=== PATIENT | male | born 1930 | race Caucasian/White ===

== ENCOUNTER 2018-07-26 11:15 | Observation (INO) | payer MEDICARE, BC ==
[2018-07-26] MEDS ORDERED: Sodium Chloride 0.9% 10 ML Syringe FLUSH PRN (11:18)
[2018-07-26] MEDS ORDERED: Sodium Chloride 0.9% 2.5 ML Syringe FLUSH PRN (11:18)
--- NOTE | 2018-07-26 11:21 | EDM.PDOC ---
ED HPI GENERAL MEDICAL PROBLEM - General Chief Complaint: Respiratory Problem Stated Complaint: TROUBLE BREATHING Time Seen by Provider: 07/26/18 11:18 Source of Information: Reports: Patient History Limitations: Reports: No Limitations - History of Present Illness INITIAL COMMENTS - FREE TEXT/NARRATIVE: HISTORY AND PHYSICAL: History of present illness: Patient is an 88-year-old male who presents to the emergency room today with complaints of shortness of breath. Patient states the shortness of breath started last night. Patient states he has inhalers at home which she has been taking as prescribed. States he's also been having a cough for the past several weeks that has not gone away. The shortness of breath is worse when he lays back and better when he sits up. States he's never been diagnosed with any heart concerns. Patient states he is only able to walk across the room before feeling short of breath. Patient denies fever, chills, nausea, vomiting, chest pain, headache, syncope, abdominal pain, or all other GI, , cardiovascular, or respiratory concerns. He does have a history of hypertension, SHIKHA, COPD, and gout. Review of systems: As per history of present illness and below otherwise all systems reviewed and negative. Past medical history: As per history of present illness and as reviewed below otherwise noncontributory. Surgical history: As per history of present illness and as reviewed below otherwise noncontributory. Social history: See social history for further information Family history: As per history of present illness and as reviewed below otherwise noncontributory. Physical exam: Physical exam is limited due to body habitus. General: Patient is alert, oriented, and in no acute distress. He is lying comfortably on exam table. HEENT: Atraumatic, normocephalic, pupils equal and reactive bilaterally, negative for conjunctival pallor or scleral icterus, mucous membranes moist, TMs normal bilaterally, throat clear, neck supple, nontender, trachea midline. No drooling or trismus noted. No meningeal signs. No hot potato voice noted. Lungs: Lung sounds difficult to hear due to body habitus and heart murmur. Otherwise, clear to auscultation, breath sounds equal bilaterally, chest nontender. Heart: S1S2, regular rate and rhythm. There is a grade 3-4 systolic ejection murmur best heard at the apex. Abdomen: Patient does have apprehension about laying back. Obese, soft, nondistended, nontender. Negative for masses or hepatosplenomegaly. Negative for costovertebral tenderness. Pelvis: Stable nontender. Genitourinary: Deferred. Rectal: Deferred. Skin: Intact, warm, dry. No lesions or rashes noted. Extremities: Atraumatic, negative for cords or calf pain. Neurovascular unremarkable. 1+ non pitting edema. Neuro: Awake, alert, oriented. Cranial nerves II through XII unremarkable. Cerebellum unremarkable. Motor and sensory unremarkable throughout. Exam nonfocal. Notes: We'll do lab work and imaging. Solumedrol and Duo nebs ordered as sats 92-95% on RA Labs do show an elevated BUN and creatinine as well as elevated liver function tests. Chest x-ray shows no acute cardiopulmonary process. After discussion with patient, he states he does not feel comfortable enough going home as he lives by himself and has felt more weak. Discussed the patient with Dr. Javier for admission and will admit to observation. Supportive care measures were reviewed and discussed. Voices understanding and is agreeable to plan of care. Denies any further questions or concerns at this time. Diagnostics: CBC, CMP, EKG, chest x-ray, troponin, UA, BNP Therapeutics: Solumedrol, Duo Neb Impression: Dehydration COPD exacerbation Transaminitis Anemia, unspecified Plan: 1. Admit to observation Definitive disposition and diagnosis as appropriate pending reevaluation and review of above. - Related Data Allergies Allergy/AdvReac Type Severity Reaction Status Date / Time No Known Allergies Allergy Verified 07/26/18 11:17 Home Meds: Home Meds Albuterol/Ipratropium [Combivent Respimat] 1 puff INH ASDIRECTED 01/02/14 [ History] Aspirin 325 mg PO DAILY 01/02/14 [History] B2/Vit A,C & E/Lut/Zeaxanth/Mn [Icaps] 1 tab PO BID 01/02/14 [History] Fluticasone Propionate [Flovent] 2 sprays NASBOTH DAILY 01/02/14 [History] Furosemide [Lasix] 40 mg PO BID 01/02/14 [History] Lisinopril 40 mg PO DAILY 01/02/14 [History] Rosuvastatin [Crestor] 10 mg PO DAILY 01/02/14 [History] Verapamil HCl [Verapamil ER] 240 mg PO BEDTIME 01/02/14 [History] Past Medical History HEENT History: Reports: Cataract Cardiovascular History: Reports: Hypertension Respiratory History: Reports: Asthma Endocrine/Metabolic History: Reports: Obesity/BMI 30+ - Past Surgical History HEENT Surgical History: Reports: Eye Surgery, Naso-Sinus Surgery, Oral Surgery Social & Family History - Family History Family Medical History: Noncontributory ED ROS GENERAL - Review of Systems Review Of Systems: ROS reveals no pertinent complaints other than HPI. ED EXAM, GENERAL - Physical Exam Exam: See Below (see dictation) Course - Vital Signs Last Recorded V/S: Last Vital Signs Temp 97.4 F 07/26/18 11:18 Pulse 71 07/26/18 13:45 Resp 18 07/26/18 13:45 BP 124/67 07/26/18 13:45 Pulse Ox 95 07/26/18 13:45 - Orders/Labs/Meds Orders: Active Orders 24 hr Category Date Time Status Admission Status [Patient Status] [ADT] Stat ADT 07/26/18 14:23 Active EKG Documentation Completion [RC] STAT Care 07/26/18 11:17 Active RT Aerosol Therapy [RC] ASDIRECTED Care 07/26/18 12:33 Active B-TYPE NATRIURETIC PEPTIDE,BNP [CHEM] Stat Lab 07/26/18 11:25 Received UA RFX ROBERT AND CULT IF INDIC [URIN] Stat Lab 07/26/18 14:18 Ordered Sodium Chloride 0.9% [Saline Flush] Med 07/26/18 11:18 Active 10 ml FLUSH ASDIRECTED PRN Sodium Chloride 0.9% [Saline Flush] Med 07/26/18 11:18 Active 2.5 ml FLUSH ASDIRECTED PRN Saline Lock Insert [OM.PC] Stat Oth 07/26/18 11:18 Ordered Medication Orders Sodium Chloride (Saline Flush) 10 ml FLUSH ASDIRECTED PRN PRN Reason: Keep Vein Open Last Admin: 07/26/18 12:04 Dose: 10 ml Sodium Chloride (Saline Flush) 2.5 ml FLUSH ASDIRECTED PRN PRN Reason: Keep Vein Open Last Admin: 07/26/18 12:04 Dose: 2.5 ml Labs: Laboratory Tests 03/12/19 03/12/19 Range/Units 11:25 11:25 WBC 5.95 (4.0-11.0) K/uL RBC 3.77 L (4.50-5.90) M/uL Hgb 11.6 L (13.0-17.0) g/dL Hct 34.0 L (38.0-50.0) % MCV 90.2 (80.0-98.0) fL MCH 30.8 (27.0-32.0) pg MCHC 34.1 (31.0-37.0) g/dL RDW Std Deviation 51.7 (28.0-62.0) fl RDW Coeff of Shahid 16 H (11.0-15.0) % Plt Count 174 (150-400) K/uL MPV 10.80 (7.40-12.00) fL Neut % (Auto) 66.0 (48.0-80.0) % Lymph % (Auto) 25.7 (16.0-40.0) % [place] % (Auto) 8.1 (0.0-15.0) % Eos % (Auto) 0.0 (0.0-7.0) % Baso % (Auto) 0.2 (0.0-1.5) % Neut # (Auto) 3.9 (1.4-5.7) K/uL Lymph # (Auto) 1.5 (0.6-2.4) K/uL [place] # (Auto) 0.5 (0.0-0.8) K/uL Eos # (Auto) 0.0 (0.0-0.7) K/uL Baso # (Auto) 0.0 (0.0-0.1) K/uL Nucleated RBC % 0.0 /100WBC Nucleated RBCs # 0 K/uL Sodium 142 (136-148) mmol/L Potassium 4.7 (3.5-5.1) mmol/L Chloride 110 H (98-107) mmol/L Carbon Dioxide 22.1 (21.0-32.0) mmol/L BUN 53 H (7.0-18.0) mg/dL Creatinine 1.6 H (0.8-1.3) mg/dL Est Cr Clr Drug Dosing 31.47 mL/min Estimated GFR (MDRD) 41.1 ml/min Glucose 151 H (74-106) mg/dL Calcium 9.1 (8.5-10.1) mg/dL Total Bilirubin 0.5 (0.2-1.0) mg/dL AST 94 H (15-37) IU/L ALT 122 H (14-63) IU/L Alkaline Phosphatase 293 H (46-116) U/L Troponin I < 0.050 (0.000-0.056) ng/mL Total Protein 6.1 L (6.4-8.2) g/dL Albumin 2.8 L (3.4-5.0) g/dL Globulin 3.3 (2.6-4.0) g/dL Albumin/Globulin Ratio 0.9 (0.9-1.6) Meds: Medications Generic Name Dose Route Start Last Admin Trade Name Freq PRN Reason Stop Dose Admin Sodium Chloride 10 ml 07/26/18 11:18 07/26/18 12:04 Saline Flush FLUSH 10 ml ASDIRECTED PRN Administration Keep Vein Open Sodium Chloride 2.5 ml 07/26/18 11:18 07/26/18 12:04 Saline Flush FLUSH 2.5 ml ASDIRECTED PRN Administration Keep Vein Open Discontinued Medications Generic Name Dose Route Start Last Admin Trade Name Freq PRN Reason Stop Dose Admin Albuterol/Ipratropium 3 ml 07/26/18 12:33 07/26/18 12:50 Duoneb 3.0-0.5 Mg/3 Ml NEB 07/26/18 12:34 3 ml ONETIME ONE Administration Sodium Chloride 1,000 mls @ 999 mls/hr 07/26/18 12:32 Normal Saline IV 07/26/18 13:32 STAT ONE Methylprednisolone Sodium Succinate 125 mg 07/26/18 12:33 07/26/18 12:41 Solu-Medrol IVPUSH 07/26/18 12:34 125 mg ONETIME ONE Administration Departure - Departure Time of Disposition: 14:31 Disposition: Refer to Observation Clinical Impression: COPD exacerbation, Dehydration, Transaminitis Anemia Qualifiers: Anemia type: unspecified type Qualified Code(s): D64.9 - Anemia, unspecified - Discharge Information Referrals: PCP,Unknown [Primary Care Provider] - Forms: ED Department Discharge - My Orders Last 24 Hours: My Active Orders 07/26/18 11:17 EKG Documentation Completion [RC] STAT 07/26/18 11:18 Sodium Chloride 0.9% [Saline Flush] 10 ml FLUSH ASDIRECTED PRN Sodium Chloride 0.9% [Saline Flush] 2.5 ml FLUSH ASDIRECTED PRN Saline Lock Insert [OM.PC] Stat 07/26/18 11:25 B-TYPE NATRIURETIC PEPTIDE,BNP [CHEM] Stat 07/26/18 12:33 RT Aerosol Therapy [RC] ASDIRECTED 07/26/18 14:18 UA RFX ROBERT AND CULT IF INDIC [URIN] Stat 07/26/18 14:23 Admission Status [Patient Status] [ADT] Stat - Assessment/Plan Last 24 Hours: My Active Orders 07/26/18 11:17 EKG Documentation Completion [RC] STAT 07/26/18 11:18 Sodium Chloride 0.9% [Saline Flush] 10 ml FLUSH ASDIRECTED PRN Sodium Chloride 0.9% [Saline Flush] 2.5 ml FLUSH ASDIRECTED PRN Saline Lock Insert [OM.PC] Stat 07/26/18 11:25 B-TYPE NATRIURETIC PEPTIDE,BNP [CHEM] Stat 07/26/18 12:33 RT Aerosol Therapy [RC] ASDIRECTED 07/26/18 14:18 UA RFX ROBERT AND CULT IF INDIC [URIN] Stat 07/26/18 14:23 Admission Status [Patient Status] [ADT] Stat
[2018-07-26 12:01] LABS: CHLORIDE,CL 110 mmol/L (98-107); SODIUM,NA 142 mmol/L (136-148)
[2018-07-26] MEDS ORDERED: Sodium Chloride 0.9% 1,000 ML IV ONE (12:32)
[2018-07-26] MEDS ORDERED: Albuterol/Ipratropium 3.0-0.5 MG/3 ML Neb Soln NEB ONE (12:33)
[2018-07-26] MEDS ORDERED: methylPREDNISolone Sodium Succinate 125 MG/2 ML SDV IVPUSH ONE (12:33)
--- NOTE | 2018-07-26 14:11 | CR ---
EXAMINATION: Portable chest radiograph. HISTORY: Shortness of breath. FINDINGS: The trachea is midline. The cardiomediastinal silhouette is within normal limits. No pulmonary infiltrates, effusions or pneumothorax. Osseous structures appear unremarkable. IMPRESSION: No acute cardiopulmonary process.
[2018-07-26] MEDS ORDERED: Albuterol/Ipratropium 3.0-0.5 MG/3 ML Neb Soln NEB PRN (14:58)
[2018-07-26] MEDS ORDERED: Acetaminophen 325 MG Tab PO PRN (14:58)
[2018-07-26] MEDS ORDERED: Ondansetron 4 MG/2 ML SDV IVPUSH PRN (14:58)
[2018-07-26] MEDS ORDERED: Heparin Sodium 5,000 Units/ML Vial SUBCUT SCH ×2 (15:00→17:00)
[2018-07-26] MEDS ORDERED: Sodium Chloride 0.9% 500 ML IV ONE (15:03)
--- NOTE | 2018-07-26 15:09 | PCM.HP ---
H&P History of Present Illness - General Date of Service: 07/26/18 Admit Problem/Dx: Admission Diagnosis/Problem Admission Diagnosis/Problem Dehydration Source of Information: Patient History Limitations: Reports: No Limitations - History of Present Illness Initial Comments - Free Text/Narative: This 88 year old male with pmh of HTN, COPD, chronic knee pain from osteoarthritis and borderline DM type 2 (diet controlled) presented to the ED today with complaints of shortness of breath and generalized weakness. He reports he has had a cough and cold for several week and just wasn't feeling well. 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 He denies fevers, headache or neck pain. No chest pain or palpitations. No abdominal pain, nausea, vomiting or diarrhea. No black or bloody BMs. No neurologic complaints. He reports he has been eating and drinking well. He does not feel safe to return home by himself, he lives alone. He ambulates in the home normally with a cane. He denies tobacco use, occasional alcohol use, a couple a day here and there per his report. In the ED no leukocytosis noted, BUN 53 Cr 1.6. AST 94, ALT 122, Alk phos 293. BNP 266. BP slightly hypotensive upon arrival, increased to 120s SBP. CXR negative. He was give Solumedrol and Duonebs in the ED. He reports he is feeling better with breathing, but doesn't feel safe to go home due to his generalized weakness. PCP, Dr Melendez. - Related Data Allergies/Adverse Reactions: Allergies Allergy/AdvReac Type Severity Reaction Status Date / Time No Known Allergies Allergy Verified 07/26/18 11:17 Home Medications: Home Meds Albuterol/Ipratropium [Combivent Respimat] 1 puff INH ASDIRECTED 01/02/14 [ History] Aspirin 325 mg PO DAILY 01/02/14 [History] B2/Vit A,C & E/Lut/Zeaxanth/Mn [Icaps] 1 tab PO BID 01/02/14 [History] Fluticasone Propionate [Flovent] 2 sprays NASBOTH DAILY 01/02/14 [History] Furosemide [Lasix] 40 mg PO BID 01/02/14 [History] Lisinopril 40 mg PO DAILY 01/02/14 [History] Rosuvastatin [Crestor] 10 mg PO DAILY 01/02/14 [History] Verapamil HCl [Verapamil ER] 240 mg PO BEDTIME 01/02/14 [History] Past Medical History HEENT History: Reports: Cataract Cardiovascular History: Reports: High Cholesterol, Hypertension. Denies: Afib, Blood Clots/VTE/DVT, CAD, Heart Failure, ND Respiratory History: Reports: Asthma, COPD, Sleep Apnea (CPAP at home) Gastrointestinal History: Reports: Colon Polyp. Denies: GERD Genitourinary History: Reports: None, Chronic Renal Insuffiency Musculoskeletal History: Reports: Osteoarthritis (chronic knee pain, typically gets steroid injections with Dr Melendez) Neurological History: Reports: None. Denies: CVA, TIA Psychiatric History: Reports: None Endocrine/Metabolic History: Reports: Diabetes, Type II (borderline DM, diet controlled), Obesity/BMI 30+ - Infectious Disease History Infectious Disease History: Reports: Chicken Pox - Past Surgical History HEENT Surgical History: Reports: Eye Surgery, Naso-Sinus Surgery, Oral Surgery GI Surgical History: Reports: Colonoscopy Social & Family History - Family History Family Medical History: Noncontributory - Tobacco Use Smoking Status *Q: Never Smoker - Caffeine Use Caffeine Use: Reports: Coffee - Alcohol Use Alcohol Use History: No Alcohol Use Frequency: Rarely - Living Situation & Occupation Living situation: Reports: Alone Occupation: Retired H&P Review of Systems - Review of Systems: Review Of Systems: See Below General: Reports: Weakness (generlized). Denies: Fever, Chills HEENT: Reports: Sinus Congestion. Denies: Ear Pain, Headaches, Post Nasal Drip , Sore Throat, Visual Changes Pulmonary: Reports: Shortness of Breath, Wheezing, Cough. Denies: Sputum, Hemoptysis Cardiovascular: Reports: Orthopnea, Edema (lower legs). Denies: Chest Pain, Palpitations, Lightheadedness Gastrointestinal: Reports: No Symptoms. Denies: Abdominal Pain, Black Stool, Bloody Stool, Nausea, Vomiting Genitourinary: Reports: No Symptoms. Denies: Dysuria, Frequency, Burning Musculoskeletal: Reports: No Symptoms Skin: Reports: No Symptoms Psychiatric: Reports: No Symptoms Neurological: Reports: No Symptoms Hematologic/Lymphatic: Reports: No Symptoms Immunologic: Reports: No Symptoms Exam - Exam Exam: See Below - Vital Signs Vital Signs: Last Vital Signs Temp 97.4 F 07/26/18 11:18 Pulse 71 07/26/18 14:47 Resp 20 07/26/18 14:47 BP 124/47 L 07/26/18 14:47 Pulse Ox 95 07/26/18 14:47 Weight: 122.47 kg - Exam Quality Assessment: DVT Prophylaxis. No: Supplemental Oxygen General: Alert, Oriented, Cooperative HEENT: Conjunctiva Clear, Mucosa Moist & [place], Posterior Pharynx Clear Lungs: Clear to Auscultation, Normal Respiratory Effort Cardiovascular: Regular Rate, Regular Rhythm, Systolic Murmur (grade 3-4 holosystolic murmur, patient reports he never had this before. ) GI/Abdominal Exam: Normal Bowel Sounds, Soft, Non-Tender, No Distention, Other ( obese abdomen) Back Exam: Normal Inspection, Full Range of Motion Extremities: Normal Inspection, Normal Range of Motion, Non-Tender, Pedal Edema (+1 pitting edema) Skin: Warm, Dry Neuro Extensive - Mental Status: Alert, Oriented x3, Normal Mood/Affect Neuro Extensive - Motor, Sensory, Reflexes: CN II-XII Intact Psychiatric: Alert, Normal Affect, Normal Mood - Patient Data Lab Results Last 24 hrs: Laboratory Results - last 24 hr 07/26/18 07/26/18 07/26/18 Range/Units 11:25 11:25 11:25 WBC 5.95 (4.0-11.0) K/uL RBC 3.77 L (4.50-5.90) M/uL Hgb 11.6 L (13.0-17.0) g/dL Hct 34.0 L (38.0-50.0) % MCV 90.2 (80.0-98.0) fL MCH 30.8 (27.0-32.0) pg MCHC 34.1 (31.0-37.0) g/dL RDW Std Deviation 51.7 (28.0-62.0) fl RDW Coeff of Shahid 16 H (11.0-15.0) % Plt Count 174 (150-400) K/uL MPV 10.80 (7.40-12.00) fL Neut % (Auto) 66.0 (48.0-80.0) % Lymph % (Auto) 25.7 (16.0-40.0) % [place] % (Auto) 8.1 (0.0-15.0) % Eos % (Auto) 0.0 (0.0-7.0) % Baso % (Auto) 0.2 (0.0-1.5) % Neut # (Auto) 3.9 (1.4-5.7) K/uL Lymph # (Auto) 1.5 (0.6-2.4) K/uL [place] # (Auto) 0.5 (0.0-0.8) K/uL Eos # (Auto) 0.0 (0.0-0.7) K/uL Baso # (Auto) 0.0 (0.0-0.1) K/uL Nucleated RBC % 0.0 /100WBC Nucleated RBCs # 0 K/uL Sodium 142 (136-148) mmol/L Potassium 4.7 (3.5-5.1) mmol/L Chloride 110 H (98-107) mmol/L Carbon Dioxide 22.1 (21.0-32.0) mmol/L BUN 53 H (7.0-18.0) mg/dL Creatinine 1.6 H (0.8-1.3) mg/dL Est Cr Clr Drug Dosing 31.47 mL/min Estimated GFR (MDRD) 41.1 ml/min Glucose 151 H (74-106) mg/dL Calcium 9.1 (8.5-10.1) mg/dL Total Bilirubin 0.5 (0.2-1.0) mg/dL AST 94 H (15-37) IU/L ALT 122 H (14-63) IU/L Alkaline Phosphatase 293 H (46-116) U/L Troponin I < 0.050 (0.000-0.056) ng/mL B-Natriuretic Peptide 266 H (<100) PG/ML Total Protein 6.1 L (6.4-8.2) g/dL Albumin 2.8 L (3.4-5.0) g/dL Globulin 3.3 (2.6-4.0) g/dL Albumin/Globulin Ratio 0.9 (0.9-1.6) Result Diagrams: 07/26/18 11:25 07/26/18 11:25 EKG INTERPRETATION EKG Date: 07/26/18 Rhythm: NSR Rate (Beats/Min): 70 P-Wave: Present QRS: Normal ST-T: Normal QT: Normal *Q Meaningful Use (ADM) - VTE Risk Assess *Q Each Risk Factor Represents 1 Point: Obesity ( BMI > 25 kg/m2), Abnormal Pulmonary Function (COPD) Total Score 1 Point Risk Factors: 2 Each Risk Factor Represents 2 Points: None Total Score 2 Point Risk Factors: 0 Each Risk Factor Represents 3 Points: Age 75 Years or Greater Total Score 3 Point Risk Factors: 3 Each Risk Factor Represents 5 Points: None Total Score 5 Point Risk Factors: 0 Venous Thromboembolism Risk Factor Score *Q: 5 - Problem List (1) COPD exacerbation SNOMED Code(s): 704182470 ICD Code: J44.1 - CHRONIC OBSTRUCTIVE PULMONARY DISEASE W (ACUTE) EXACERBATION Status: Acute Current Visit: Yes (2) Generalized weakness SNOMED Code(s): 14484209 ICD Code: R53.1 - WEAKNESS Status: Acute Current Visit: Yes (3) Newly recognized murmur SNOMED Code(s): 05303575 ICD Code: R01.1 - CARDIAC MURMUR, UNSPECIFIED Status: Acute Current Visit : Yes (4) Transaminitis SNOMED Code(s): 673770757, 293600199 ICD Code: R74.0 - NONSPEC ELEV OF LEVELS OF TRANSAMNS & LACTIC ACID DEHYDRGNSE Status: Acute Current Visit: Yes (5) BLACK (acute kidney injury) SNOMED Code(s): 62062353 ICD Code: N17.9 - ACUTE KIDNEY FAILURE, UNSPECIFIED Status: Acute Current Visit: Yes (6) Dehydration SNOMED Code(s): 64461383 ICD Code: E86.0 - DEHYDRATION Status: Acute Current Visit: Yes (7) HTN (hypertension) SNOMED Code(s): 89444801 ICD Code: I10 - ESSENTIAL (PRIMARY) HYPERTENSION Status: Chronic Current Visit: Yes Qualifiers: Hypertension type: essential hypertension Qualified Code(s): I10 - Essential (primary) hypertension (8) Borderline type 2 diabetes mellitus SNOMED Code(s): 389971911 ICD Code: R73.03 - PREDIABETES Status: Chronic Current Visit: Yes Problem List Initiated/Reviewed/Updated: Yes Orders Last 24hrs: Active Orders 24 hr Category Date Time Status Admission Status [Patient Status] [ADT] Stat ADT 07/26/18 14:23 Active Height and Weight [RC] DAILY Care 07/26/18 14:58 Ordered Intake and Output [RC] QSHIFT Care 07/26/18 14:58 Ordered May Shower [RC] ASDIRECTED Care 07/26/18 14:58 Ordered Oxygen Therapy [RC] PRN Care 07/26/18 14:58 Ordered RT Aerosol Therapy [RC] ASDIRECTED Care 07/26/18 12:33 Active RT Aerosol Therapy [RC] ASDIRECTED Care 07/26/18 15:00 Ordered Up With Assistance [RC] ASDIRECTED Care 07/26/18 14:58 Ordered VTE/DVT Education [RC] PER UNIT ROUTINE Care 07/26/18 14:58 Ordered Vital Signs [RC] Q4H Care 07/26/18 14:58 Ordered PT Evaluation and Treatment [CONS] Routine Cons 07/26/18 14:58 Ordered [place] [employer] Diet [DIET] Diet 07/26/18 Lunch Ordered Abdomen Ltd [US] Routine Exams 07/26/18 15:01 Ordered Echo Comp wo Cont [US] Routine Exams 07/26/18 15:02 Ordered CBC WITH AUTO DIFF [HEME] AM Lab 07/27/18 05:11 Ordered COMPREHENSIVE METABOLIC PN,CMP [CHEM] AM Lab 07/27/18 05:11 Ordered HEPATITIS PANEL (4) [REF] Routine Lab 07/26/18 15:01 Ordered UA RFX ROBERT AND CULT IF INDIC [URIN] Stat Lab 07/26/18 14:18 Ordered Acetaminophen [Tylenol] Med 07/26/18 14:58 Ordered 650 mg PO Q4H PRN Albuterol/Ipratropium [DuoNeb 3.0-0.5 MG/3 ML] Med 07/26/18 14:58 Ordered 3 ml NEB Q4HRRT PRN Heparin Sodium Med 07/26/18 15:00 Ordered 5,000 units SUBCUT Q12H Ondansetron [Zofran] Med 07/26/18 14:58 Ordered 4 mg IVPUSH Q4H PRN Sodium Chloride 0.9% [Normal Saline] 500 ml Med 07/26/18 15:03 Ordered IV ONETIME Sodium Chloride 0.9% [Saline Flush] Med 07/26/18 11:18 Active 10 ml FLUSH ASDIRECTED PRN Sodium Chloride 0.9% [Saline Flush] Med 07/26/18 11:18 Active 2.5 ml FLUSH ASDIRECTED PRN Saline Lock Insert [OM.PC] Stat Oth 07/26/18 11:18 Ordered Resuscitation Status Routine Resus Stat 07/26/18 14:58 Ordered Medication Orders Acetaminophen (Tylenol) 650 mg PO Q4H PRN PRN Reason: Pain (mild 1-3) Albuterol/Ipratropium (Duoneb 3.0-0.5 Mg/3 Ml) 3 ml NEB Q4HRRT PRN PRN Reason: Shortness Of Breath/wheezing Heparin Sodium (Porcine) (Heparin Sodium) 5,000 units SUBCUT Q12H ZAIDA Sodium Chloride (Normal Saline) 500 mls @ 100 mls/hr IV ONETIME ONE Stop: 07/26/18 20:02 Ondansetron HCl (Zofran) 4 mg IVPUSH Q4H PRN PRN Reason: Nausea Sodium Chloride (Saline Flush) 10 ml FLUSH ASDIRECTED PRN PRN Reason: Keep Vein Open Last Admin: 07/26/18 12:04 Dose: 10 ml Sodium Chloride (Saline Flush) 2.5 ml FLUSH ASDIRECTED PRN PRN Reason: Keep Vein Open Last Admin: 07/26/18 12:04 Dose: 2.5 ml Assessment/Plan Comment:: This 88 year old male admitted with mild COPD exacerbation and generalized weaknes 1. COPD exacerbation: Will continue inhalers as per home. Add Duonebs and Prednisone 40 mg daily. Oxygen PRN to keep sats 88% Encourage IS. 2. Generalized weakness: May be related to acute URI. Will consult PT to evaluate and treat. 3. New murmur: reports never had murmur before. No documentation of murmur is PCPs notes upon review. Will obtain ECHO. 4. Mild dehydration with BLACK: Will give 500 ml NS and monitor labs in am. Hold Lasix and Lisinopril with BLACK. BUN/Cr elevated from baseline of 28/1.1 5. Transaminitis: Will obtain hepatitis panel. and Abdominal US. Denies pain. Will Hold Crestor for now. 6. HTN: Stable. Will continue Verapamil. Monitor 7. DM Type 2: Reports borderline and doesn't take medications. A1c 5.6 in 2017. Novolog SSI while in the hospital VTE prophylaxis: Heparin Q12h Dispo: 1-2 days.
[2018-07-26] MEDS ORDERED: Albuterol/Ipratropium 4 GM Inhalation Spray INH PRN (16:38)
[2018-07-26] MEDS: Heparin Sodium 5,000 Units/ML Vial SUBCUT SCH (17:11)
[2018-07-26] MEDS: Insulin Aspart 100 Units/ML 3 ML Pen SUBCUT SCH (17:18)
[2018-07-26] MEDS ORDERED: Verapamil 240 MG Tab.ER PO SCH (21:00)
[2018-07-26] MEDS: ICAPS PO SCH (21:48)
[2018-07-27] MEDS: Insulin Aspart 100 Units/ML 3 ML Pen SUBCUT SCH ×2 (06:44→13:46)
[2018-07-27] MEDS ORDERED: predniSONE 20 MG Tab PO SCH (08:00)
[2018-07-27] MEDS ORDERED: Aspirin 81 MG Tab.Chew PO SCH (09:00)
[2018-07-27] MEDS ORDERED: Fluticasone Propionate Nasal Spray 16 GM Bottle NASBOTH SCH (09:00)
[2018-07-27] MEDS: Heparin Sodium 5,000 Units/ML Vial SUBCUT SCH (09:45)
[2018-07-27] MEDS: ICAPS PO SCH (10:12)
--- NOTE | 2018-07-27 11:54 | PCM.DCSUM1 ---
Discharge Summary - Hospital Course Brief History: This 88 year old male with pmh of HTN, COPD, chronic knee pain from osteoarthritis and borderline DM type 2 (diet controlled) presented to the ED today with complaints of shortness of breath and generalized weakness. He reports he has had a cough and cold for several week and just wasn't feeling well. 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 He denies fevers, headache or neck pain. No chest pain or palpitations. No abdominal pain, nausea, vomiting or diarrhea. No black or bloody BMs. No neurologic complaints. He reports he has been eating and drinking well. He does not feel safe to return home by himself, he lives alone. He ambulates in the home normally with a cane. He denies tobacco use, occasional alcohol use, a couple a day here and there per his report. In the ED no leukocytosis noted, BUN 53 Cr 1.6. AST 94, ALT 122, Alk phos 293. BNP 266. BP slightly hypotensive upon arrival, increased to 120s SBP. CXR negative. He was give Solumedrol and Duonebs in the ED. He reports he is feeling better with breathing, but doesn't feel safe to go home due to his generalized weakness. PCP, Dr Melendez. Diagnosis: Stroke: No - Discharge Data Discharge Date: 07/27/18 Discharge Disposition: Home, W Home Health Agency 06 Condition: Good - Discharge Diagnosis/Problem(s) (1) COPD exacerbation SNOMED Code(s): 065973862 ICD Code: J44.1 - CHRONIC OBSTRUCTIVE PULMONARY DISEASE W (ACUTE) EXACERBATION Status: Acute Current Visit: Yes (2) Generalized weakness SNOMED Code(s): 38218585 ICD Code: R53.1 - WEAKNESS Status: Acute Current Visit: Yes (3) Newly recognized murmur SNOMED Code(s): 81151375 ICD Code: R01.1 - CARDIAC MURMUR, UNSPECIFIED Status: Acute Current Visit : Yes (4) Transaminitis SNOMED Code(s): 032761470, 378433121 ICD Code: R74.0 - NONSPEC ELEV OF LEVELS OF TRANSAMNS & LACTIC ACID DEHYDRGNSE Status: Acute Current Visit: Yes (5) BLACK (acute kidney injury) SNOMED Code(s): 15488397 ICD Code: N17.9 - ACUTE KIDNEY FAILURE, UNSPECIFIED Status: Acute Current Visit: Yes (6) Dehydration SNOMED Code(s): 12527071 ICD Code: E86.0 - DEHYDRATION Status: Acute Current Visit: Yes (7) HTN (hypertension) SNOMED Code(s): 23388470 ICD Code: I10 - ESSENTIAL (PRIMARY) HYPERTENSION Status: Chronic Current Visit: Yes Qualifiers: Hypertension type: essential hypertension Qualified Code(s): I10 - Essential (primary) hypertension (8) Borderline type 2 diabetes mellitus SNOMED Code(s): 105219654 ICD Code: R73.03 - PREDIABETES Status: Chronic Current Visit: Yes - Patient Summary/Data Consults: Consultations 07/26/18 14:58 PT Evaluation and Treatment [CONS] Routine - Patient Instructions Diet: Heart Healthy Diet, Diabetic Diet Activity: As Tolerated Showering/Bathing: May Shower Notify Provider of: Fever, Increased Pain, Swelling and Redness, Drainage, Nausea and/or Vomiting - Discharge Plan *PRESCRIPTION DRUG MONITORING PROGRAM REVIEWED*: Not Applicable *COPY OF PRESCRIPTION DRUG MONITORING REPORT IN PATIENT TED: Not Applicable Prescriptions/Med Rec: predniSONE 40 mg PO WITHBREAKFAST #6 tablet Home Medications: Home Meds Albuterol/Ipratropium [Combivent Respimat] 1 puff INH DAILY PRN 01/02/14 [ History] Aspirin 81 mg PO DAILY 01/02/14 [History] B2/Vit A,C & E/Lut/Zeaxanth/Mn [Icaps] 1 tab PO BID 01/02/14 [History] Fluticasone Propionate [Flovent] 2 sprays NASBOTH DAILY 01/02/14 [History] Furosemide [Lasix] 80 mg PO BID 01/02/14 [History] Lisinopril 40 mg PO DAILY 01/02/14 [History] Verapamil HCl [Verapamil ER] 240 mg PO BEDTIME 01/02/14 [History] Allopurinol [Zyloprim] 200 mg PO DAILY 07/26/18 [History] Fluticasone/Salmeterol [Advair HFA 230-21 MCG] 2 puff INH BID 07/26/18 [History] predniSONE 40 mg PO WITHBREAKFAST #6 tablet 07/27/18 [Rx] Oxygen Therapy Mode: Room Air Patient Handouts: Chronic Obstructive Pulmonary Disease, [id number], Prednisone tablets Referrals: Morgan Melendez MD [Physician] - 08/11/18 12:15 pm - Discharge Summary/Plan Comment DC Time >30 min.: No Discharge Summary/Plan Comment: Discharge Diagnoses: COPD exacerbation Transaminitis New murmur Generalized weakness PATT Rosas was admitted and treated for COPD exacerbation, which was very mild, with Duonebs and Prednisone. He reported generalized weakness with ambulation, PT was consulted and report he was steady ambulating with cane. Today he is feeling better and is eager to go home. Liver US and ECOH are pending to transaminitis and new murmur. He denies chest pain. shortness of breath has improved. I will discharge him on Prednisone for 4 more days and then to continue his inhalers as prescribed. He is to follow up with PCP as scheduled in 1-2 weeks. He is will go home Home Health consult. He is in need of skill nursing to insure he is taking medications as prescribed and would benefit from some PT due to recent admission and illness. He is home bound needing family to bring him to doctor appointments or to go to the store. He uses a cane for ambulation within and outside of the home. Dr Melendez is Ralph's PCP and he will follow with Home Health plan of care. - General Info Date of Service: 07/27/18 Admission Dx/Problem (Free Text: Admission Diagnosis/Problem Admission Diagnosis/Problem Dehydration Subjective Update: Sitting in recliner, feeling better today. reports his asthma is acting up. NO chest pain. Dyspnea better, eager to go home this afternoon. Functional Status: Reports: Tolerating Diet, Ambulating, Urinating - Review of Systems General: Reports: No Symptoms. Denies: Fever, Weakness, Fatigue, Malaise HEENT: Reports: No Symptoms. Denies: Headaches, Sore Throat Pulmonary: Reports: No Symptoms. Denies: Shortness of Breath, Cough, Sputum Cardiovascular: Reports: No Symptoms. Denies: Chest Pain, Palpitations, Dyspnea on Exertion, Edema Gastrointestinal: Reports: No Symptoms. Denies: Abdominal Pain, Nausea, Vomiting Skin: Reports: No Symptoms Neurological: Reports: No Symptoms Psychiatric: Reports: No Symptoms - Patient Data Vitals - Most Recent: Last Vital Signs Temp 96.7 F 07/27/18 08:21 Pulse 62 07/27/18 08:21 Resp 20 07/27/18 08:21 BP 139/53 L 07/27/18 08:21 Pulse Ox 95 07/27/18 04:00 Weight - Most Recent: 119.612 kg I&O - Last 24 hours: Intake & Output 07/26/18 07/27/18 07/27/18 22:59 06:59 14:59 Intake Total 500 Output Total 200 400 Balance 300 -400 Lab Results - Last 24 hrs: Laboratory Results - last 24 hr 07/26/18 07/26/18 07/26/18 Range/Units 11:25 11:25 17:14 WBC (4.0-11.0) K/uL RBC (4.50-5.90) M/uL Hgb (13.0-17.0) g/dL Hct (38.0-50.0) % MCV (80.0-98.0) fL MCH (27.0-32.0) pg MCHC (31.0-37.0) g/dL RDW Std Deviation (28.0-62.0) fl RDW Coeff of Shahid (11.0-15.0) % Plt Count (150-400) K/uL MPV (7.40-12.00) fL Neut % (Auto) (48.0-80.0) % Lymph % (Auto) (16.0-40.0) % [place] % (Auto) (0.0-15.0) % Eos % (Auto) (0.0-7.0) % Baso % (Auto) (0.0-1.5) % Neut # (Auto) (1.4-5.7) K/uL Lymph # (Auto) (0.6-2.4) K/uL [place] # (Auto) (0.0-0.8) K/uL Eos # (Auto) (0.0-0.7) K/uL Baso # (Auto) (0.0-0.1) K/uL Nucleated RBC % /100WBC Nucleated RBCs # K/uL Sodium 142 (136-148) mmol/L Potassium 4.7 (3.5-5.1) mmol/L Chloride 110 H (98-107) mmol/L Carbon Dioxide 22.1 (21.0-32.0) mmol/L BUN 53 H (7.0-18.0) mg/dL Creatinine 1.6 H (0.8-1.3) mg/dL Est Cr Clr Drug Dosing 31.47 mL/min Estimated GFR (MDRD) 41.1 ml/min Glucose 151 H (74-106) mg/dL POC Glucose 180 H (60-110) mg/dL Calcium 9.1 (8.5-10.1) mg/dL Total Bilirubin 0.5 (0.2-1.0) mg/dL AST 94 H (15-37) IU/L ALT 122 H (14-63) IU/L Alkaline Phosphatase 293 H (46-116) U/L Troponin I < 0.050 (0.000-0.056) ng/mL B-Natriuretic Peptide 266 H (<100) PG/ML Total Protein 6.1 L (6.4-8.2) g/dL Albumin 2.8 L (3.4-5.0) g/dL Globulin 3.3 (2.6-4.0) g/dL Albumin/Globulin Ratio 0.9 (0.9-1.6) Urine Color Urine Appearance Urine pH (5.0-8.0) Ur Specific [place] (1.001-1.035) Urine Protein (NEGATIVE) mg/dL Urine Glucose (UA) (NEGATIVE) mg/dL Urine Ketones (NEGATIVE) mg/dL Urine Occult Blood (NEGATIVE) Urine Nitrite (NEGATIVE) Urine Bilirubin (NEGATIVE) Urine Urobilinogen (<2.0) EU/dL Ur Leukocyte Esterase (NEGATIVE) Urine RBC (0-2/HPF) Urine WBC (0-5/HPF) Ur Epithelial Cells (NONE-FEW) Urine Bacteria (NEGATIVE) Urine Mucus (NONE-MOD) 07/26/18 07/27/18 07/27/18 Range/Units 18:50 05:05 05:05 WBC 5.14 (4.0-11.0) K/uL RBC 3.91 L (4.50-5.90) M/uL Hgb 11.9 L (13.0-17.0) g/dL Hct 35.4 L (38.0-50.0) % MCV 90.5 (80.0-98.0) fL MCH 30.4 (27.0-32.0) pg MCHC 33.6 (31.0-37.0) g/dL RDW Std Deviation 52.7 (28.0-62.0) fl RDW Coeff of Shahid 16 H (11.0-15.0) % Plt Count 189 (150-400) K/uL MPV 10.60 (7.40-12.00) fL Neut % (Auto) 77.0 (48.0-80.0) % Lymph % (Auto) 19.3 (16.0-40.0) % [place] % (Auto) 3.7 (0.0-15.0) % Eos % (Auto) 0.0 (0.0-7.0) % Baso % (Auto) 0.0 (0.0-1.5) % Neut # (Auto) 4.0 (1.4-5.7) K/uL Lymph # (Auto) 1.0 (0.6-2.4) K/uL [place] # (Auto) 0.2 (0.0-0.8) K/uL Eos # (Auto) 0.0 (0.0-0.7) K/uL Baso # (Auto) 0.0 (0.0-0.1) K/uL Nucleated RBC % 0.0 /100WBC Nucleated RBCs # 0 K/uL Sodium 142 (136-148) mmol/L Potassium 4.9 (3.5-5.1) mmol/L Chloride 109 H (98-107) mmol/L Carbon Dioxide 20.5 L (21.0-32.0) mmol/L BUN 48 H (7.0-18.0) mg/dL Creatinine 1.5 H (0.8-1.3) mg/dL Est Cr Clr Drug Dosing 33.57 mL/min Estimated GFR (MDRD) 44.3 ml/min Glucose 167 H (74-106) mg/dL POC Glucose (60-110) mg/dL Calcium 8.9 (8.5-10.1) mg/dL Total Bilirubin 0.5 (0.2-1.0) mg/dL AST 57 H (15-37) IU/L ALT 108 H (14-63) IU/L Alkaline Phosphatase 273 H (46-116) U/L Troponin I (0.000-0.056) ng/mL B-Natriuretic Peptide (<100) PG/ML Total Protein 6.6 (6.4-8.2) g/dL Albumin 3.1 L (3.4-5.0) g/dL Globulin 3.5 (2.6-4.0) g/dL Albumin/Globulin Ratio 0.9 (0.9-1.6) Urine Color YELLOW Urine Appearance CLEAR Urine pH 5.0 (5.0-8.0) Ur Specific [place] 1.010 (1.001-1.035) Urine Protein NEGATIVE (NEGATIVE) mg/dL Urine Glucose (UA) NEGATIVE (NEGATIVE) mg/dL Urine Ketones NEGATIVE (NEGATIVE) mg/dL Urine Occult Blood TRACE-INTACT H (NEGATIVE) Urine Nitrite NEGATIVE (NEGATIVE) Urine Bilirubin NEGATIVE (NEGATIVE) Urine Urobilinogen 0.2 (<2.0) EU/dL Ur Leukocyte Esterase NEGATIVE (NEGATIVE) Urine RBC 0-1 (0-2/HPF) Urine WBC 1-3 (0-5/HPF) Ur Epithelial Cells RARE (NONE-FEW) Urine Bacteria FEW (NEGATIVE) Urine Mucus FEW (NONE-MOD) 07/27/18 Range/Units 06:35 WBC (4.0-11.0) K/uL RBC (4.50-5.90) M/uL Hgb (13.0-17.0) g/dL Hct (38.0-50.0) % MCV (80.0-98.0) fL MCH (27.0-32.0) pg MCHC (31.0-37.0) g/dL RDW Std Deviation (28.0-62.0) fl RDW Coeff of Shahid (11.0-15.0) % Plt Count (150-400) K/uL MPV (7.40-12.00) fL Neut % (Auto) (48.0-80.0) % Lymph % (Auto) (16.0-40.0) % [place] % (Auto) (0.0-15.0) % Eos % (Auto) (0.0-7.0) % Baso % (Auto) (0.0-1.5) % Neut # (Auto) (1.4-5.7) K/uL Lymph # (Auto) (0.6-2.4) K/uL [place] # (Auto) (0.0-0.8) K/uL Eos # (Auto) (0.0-0.7) K/uL Baso # (Auto) (0.0-0.1) K/uL Nucleated RBC % /100WBC Nucleated RBCs # K/uL Sodium (136-148) mmol/L Potassium (3.5-5.1) mmol/L Chloride (98-107) mmol/L Carbon Dioxide (21.0-32.0) mmol/L BUN (7.0-18.0) mg/dL Creatinine (0.8-1.3) mg/dL Est Cr Clr Drug Dosing mL/min Estimated GFR (MDRD) ml/min Glucose (74-106) mg/dL POC Glucose 144 H (60-110) mg/dL Calcium (8.5-10.1) mg/dL Total Bilirubin (0.2-1.0) mg/dL AST (15-37) IU/L ALT (14-63) IU/L Alkaline Phosphatase (46-116) U/L Troponin I (0.000-0.056) ng/mL B-Natriuretic Peptide (<100) PG/ML Total Protein (6.4-8.2) g/dL Albumin (3.4-5.0) g/dL Globulin (2.6-4.0) g/dL Albumin/Globulin Ratio (0.9-1.6) Urine Color Urine Appearance Urine pH (5.0-8.0) Ur Specific [place] (1.001-1.035) Urine Protein (NEGATIVE) mg/dL Urine Glucose (UA) (NEGATIVE) mg/dL Urine Ketones (NEGATIVE) mg/dL Urine Occult Blood (NEGATIVE) Urine Nitrite (NEGATIVE) Urine Bilirubin (NEGATIVE) Urine Urobilinogen (<2.0) EU/dL Ur Leukocyte Esterase (NEGATIVE) Urine RBC (0-2/HPF) Urine WBC (0-5/HPF) Ur Epithelial Cells (NONE-FEW) Urine Bacteria (NEGATIVE) Urine Mucus (NONE-MOD) Med Orders - Current: Current Medications Acetaminophen (Tylenol) 650 mg PO Q4H PRN PRN Reason: Pain (mild 1-3) Albuterol/Ipratropium (Combivent Respimat) 4 gm INH DAILY PRN PRN Reason: Shortness of Breath Last Admin: 07/27/18 09:22 Dose: 1 puff Albuterol/Ipratropium (Duoneb 3.0-0.5 Mg/3 Ml) 3 ml NEB Q4HRRT [facility] Aspirin (Aspirin) 81 mg PO DAILY [facility] Last Admin: 07/27/18 09:43 Dose: 81 mg Fluticasone Propionate (Flonase) 0 gm NASBOTH DAILY [facility] Last Admin: 07/27/18 09:48 Dose: 1 spray Heparin Sodium (Porcine) (Heparin Sodium) 5,000 units SUBCUT Q12HR [facility] Last Admin: 07/27/18 09:45 Dose: 5,000 units Insulin Aspart (Novolog) 0 unit SUBCUT TIDAC [facility]; Protocol Last Admin: 07/27/18 06:44 Dose: Not Given Ondansetron HCl (Zofran) 4 mg IVPUSH Q4H PRN PRN Reason: Nausea [Icaps] 1 Tab 1 each PO BID [facility] Last Admin: 07/27/18 10:12 Dose: 1 each Prednisone (Prednisone) 40 mg PO WITHBREAKFAST [facility] Last Admin: 07/27/18 09:43 Dose: 40 mg Sodium Chloride (Saline Flush) 10 ml FLUSH ASDIRECTED PRN PRN Reason: Keep Vein Open Last Admin: 07/26/18 12:04 Dose: 10 ml Sodium Chloride (Saline Flush) 2.5 ml FLUSH ASDIRECTED PRN PRN Reason: Keep Vein Open Last Admin: 07/26/18 12:04 Dose: 2.5 ml Verapamil HCl (Calan Sr) 240 mg PO BEDTIME [facility] Last Admin: 07/26/18 21:48 Dose: 240 mg Discontinued Medications Albuterol/Ipratropium (Duoneb 3.0-0.5 Mg/3 Ml) 3 ml NEB ONETIME ONE Stop: 07/26/18 12:34 Last Admin: 07/26/18 12:50 Dose: 3 ml Albuterol/Ipratropium (Duoneb 3.0-0.5 Mg/3 Ml) 3 ml NEB Q4HRRT PRN PRN Reason: Shortness Of Breath/wheezing Heparin Sodium (Porcine) (Heparin Sodium) 5,000 units SUBCUT Q12H [facility] Last Admin: 07/26/18 17:29 Dose: Not Given Heparin Sodium (Porcine) (Heparin Sodium) 5,000 units SUBCUT Q12H [facility] Sodium Chloride (Normal Saline) 1,000 mls @ 999 mls/hr IV STAT ONE Stop: 07/26/18 13:32 Last Admin: 07/26/18 15:10 Dose: Not Given Sodium Chloride (Normal Saline) 500 mls @ 100 mls/hr IV ONETIME ONE Stop: 07/26/18 20:02 Last Admin: 07/26/18 16:26 Dose: 100 mls/hr Methylprednisolone Sodium Succinate (Solu-Medrol) 125 mg IVPUSH ONETIME ONE Stop: 07/26/18 12:34 Last Admin: 07/26/18 12:41 Dose: 125 mg - Exam General: Reports: Alert, Oriented, Cooperative, No Acute Distress Neck: Reports: Supple Lungs: Reports: Clear to Auscultation, Normal Respiratory Effort Cardiovascular: Reports: Regular Rate, Regular Rhythm, Murmurs (grade 3-4 holosystolic) GI/Abdominal Exam: Normal Bowel Sounds, Soft, Non-Tender, No Organomegaly Back Exam: Reports: Normal Inspection, Full Range of Motion Neurological: Reports: No New Focal Deficit Psy/Mental Status: Reports: Alert, Normal Affect, Normal Mood
[2018-07-27] MEDS ORDERED: Albuterol/Ipratropium 3.0-0.5 MG/3 ML Neb Soln NEB SCH (14:00)
[2018-07-27 14:07] VITALS: BP 131/60
--- NOTE | 2018-07-27 15:13 | US ---
EXAMINATION: Right upper quadrant ultrasound HISTORY: Transaminitis COMPARISON: None TECHNIQUE: Grayscale and color Doppler imaging obtained. FINDINGS: The visualized pancreas appears normal. The liver is normal in contour and echotexture without a focal hepatic mass. The gallbladder wall thickness is normal. No pericholecystic fluid or shadowing gallstones. Common bile duct measures 5 mm. Negative sonographic Riojas sign. IMPRESSION: 1. No acute findings noted within the right upper quadrant.
--- NOTE | 2018-07-29 17:34 | ECHO ---
The echocardiogram report can be seen in this patient's EMR (Electronic Medical Record) in the Reports section. The echocardiogram report has been scanned into PACS and can be seen there as well. ARACELI
== END 2018-07-27 16:00 | disposition home health service (06) ==
LOC: MW.ED 11:15 → MW.MS 14:23
PROVIDERS: ADMIT Internal Medicine; ATTEND Internal Medicine
DX: J44.1 Chronic obstructive pulmonary disease with (acute) exacerbation (principal); E86.0 Dehydration; N17.9 Acute kidney failure, unspecified; R01.1 Cardiac murmur, unspecified; R74.0 Nonspecific elevation of levels of transaminase and lactic acid dehydrogenase [LDH]; I12.9 Hypertensive chronic kidney disease with stage 1 through stage 4 chronic kidney disease, or unspecified chronic kidney disease; N18.9 Chronic kidney disease, unspecified; E78.00 Pure hypercholesterolemia, unspecified; J44.9 Chronic obstructive pulmonary disease, unspecified; R73.03 Prediabetes; G47.30 Sleep apnea, unspecified; M17.12 Unilateral primary osteoarthritis, left knee; Z99.89 Dependence on other enabling machines and devices; Z79.82 Long term (current) use of aspirin; Z79.51 Long term (current) use of inhaled steroids; Z79.52 Long term (current) use of systemic steroids; Z79.899 Other long term (current) drug therapy
CPT/HCPCS: 36415; 71045; 76705; 80053; 80074; 81001; 82962; 83880; 84484; 85025; 93005; 93306; 94640; 94664; 97161; A9270; J1644; J2930; J7040; 99284; J7620-GY

== ENCOUNTER 2019-03-09 15:50 | Observation (INO) | payer MEDICARE, BC ==
[2019-03-09] MEDS ORDERED: Sodium Chloride 0.9% 10 ML Syringe FLUSH PRN (16:06)
[2019-03-09] MEDS ORDERED: Sodium Chloride 0.9% 2.5 ML Syringe FLUSH PRN (16:06)
--- NOTE | 2019-03-09 16:06 | EDM.PDOC ---
ED HPI GENERAL MEDICAL PROBLEM - General Chief Complaint: Skin Complaint Stated Complaint: BLISTER ON NECK Time Seen by Provider: 03/09/19 16:03 Source of Information: Reports: Patient History Limitations: Reports: No Limitations - History of Present Illness INITIAL COMMENTS - FREE TEXT/NARRATIVE: HISTORY AND PHYSICAL: History of present illness: Patient is an 88-year-old male who presents to the emergency room from the clinic with complaints of an abscess/boil to his right posterior neck. He reports he initially presented to the clinic to have this abscess drained. The clinic attempted to perform an I&D but was unsuccessful. They encouraged him to come to the emergency room for further evaluation and management. Patient reports he noticed some soft tissue swelling and redness of approximately 3-4 days ago. States the area has progressively gotten larger and has noticed multiple pustules near the center. He has had subjective fevers at home, none reported. Patient denies any chills, headache, change in vision, syncope or near syncope. Denies any chest pain, back pain, shortness of breath or cough. Denies any abdominal pain, nausea, vomiting, diarrhea, constipation or dysuria. Has not noted any blood in urine or stool. Patient has been eating and drinking appropriately. Review of systems: As per history of present illness and below otherwise all systems reviewed and negative. Past medical history: As per history of present illness and as reviewed below otherwise noncontributory. Surgical history: As per history of present illness and as reviewed below otherwise noncontributory. Social history: See social history for further information Family history: As per history of present illness and as reviewed below otherwise noncontributory. Physical exam: General: Well developed and well nourished 88-year-old male. Alert and oriented. Nontoxic appearing and in no acute distress. HEENT: Atraumatic, normocephalic, pupils equal and reactive bilaterally, negative for conjunctival pallor or scleral icterus, mucous membranes moist, trachea midline. No drooling or trismus noted. No meningeal signs. No hot potato voice noted. Lungs: Clear to auscultation, breath sounds equal bilaterally, chest nontender. Heart: S1S2, regular rate and rhythm without overt murmur Abdomen: Soft, nondistended, obese, nontender. Negative for masses. Negative for costovertebral tenderness. Pelvis: Stable nontender. Skin: Baseball size mass noted to the right posterior neck which is firm to palpation. Surrounding erythema and multiple small pinpoint pustules are noted in the center of the mass. The remaining skin is intact, warm, dry. No lesions or rashes noted. Extremities: Atraumatic, moves all extremities per self without difficulty or deficits, negative for cords or calf pain. Neurovascular unremarkable. Neuro: Awake, alert, oriented. Cranial nerves II through XII unremarkable. Cerebellum unremarkable. Motor and sensory unremarkable throughout. Exam nonfocal. Notes: The mass does not appear to affect his airway. Due to the size of this, I will do a CT with contrast. Blood cultures have been obtained. CT pending. Dr Curry is here, evaluating patient, will admit for possible surgery tomorrow. Diagnostics: CBC, CMP, Lactic, BC x 2, CT soft tissue neck Therapeutics: Saline Lock Impression: Neck Mass r/o Abscess Plan: Observation admission to Med/Surg Definitive disposition and diagnosis as appropriate pending reevaluation and review of above. Duration: Day(s): Location: Reports: Neck Neck Pain Score (Numeric/FACES): 8 - Related Data Allergies Allergy/AdvReac Type Severity Reaction Status Date / Time No Known Allergies Allergy Verified 03/09/19 16:00 Home Meds: Home Meds Albuterol/Ipratropium [Combivent Respimat] 1 puff INH DAILY PRN 01/02/14 [ History] Aspirin 81 mg PO DAILY 01/02/14 [History] B2/Vit A,C & E/Lut/Zeaxanth/Mn [Icaps] 1 tab PO BID 01/02/14 [History] Fluticasone Propionate [Flovent] 2 sprays NASBOTH DAILY 01/02/14 [History] Furosemide [Lasix] 80 mg PO BID 01/02/14 [History] Lisinopril 40 mg PO DAILY 01/02/14 [History] Verapamil HCl [Verapamil ER] 240 mg PO BEDTIME 01/02/14 [History] Allopurinol [Zyloprim] 200 mg PO DAILY 07/26/18 [History] Fluticasone/Salmeterol [Advair HFA 230-21 MCG] 2 puff INH BID 07/26/18 [History] predniSONE 40 mg PO WITHBREAKFAST #6 tablet 07/27/18 [Rx] Past Medical History HEENT History: Reports: Cataract Cardiovascular History: Reports: High Cholesterol, Hypertension Respiratory History: Reports: Asthma, COPD, Sleep Apnea Gastrointestinal History: Reports: Colon Polyp Genitourinary History: Reports: None, Chronic Renal Insuffiency Musculoskeletal History: Reports: Osteoarthritis Neurological History: Reports: None Psychiatric History: Reports: None Endocrine/Metabolic History: Reports: Diabetes, Type II, Obesity/BMI 30+ - Infectious Disease History Infectious Disease History: Reports: Chicken Pox, Mumps - Past Surgical History HEENT Surgical History: Reports: Eye Surgery, Naso-Sinus Surgery, Oral Surgery GI Surgical History: Reports: Colonoscopy Social & Family History - Family History Family Medical History: Noncontributory - Caffeine Use Caffeine Use: Reports: Coffee, Soda - Living Situation & Occupation Living situation: Reports: Alone Occupation: Retired ED ROS GENERAL - Review of Systems Review Of Systems: ROS reveals no pertinent complaints other than HPI. ED EXAM, SKIN/RASH Exam: See Below (See dictation) Course - Vital Signs Last Recorded V/S: Last Vital Signs Temp 98.5 F 03/09/19 15:57 Pulse 98 03/09/19 15:57 Resp 18 03/09/19 15:57 BP 154/64 H 03/09/19 15:57 Pulse Ox 98 03/09/19 15:57 - Orders/Labs/Meds Orders: Active Orders 24 hr Category Date Time Status Admission Status [Patient Status] [ADT] Stat ADT 03/09/19 18:44 Active Soft Tissue Neck w Cont [CT] Stat Exams 03/09/19 16:10 Ordered CULTURE BLOOD [BC] Stat Lab 03/09/19 16:35 Results CULTURE BLOOD [BC] Stat Lab 03/09/19 16:51 Received Sodium Chloride 0.9% [Saline Flush] Med 03/09/19 16:06 Active 10 ml FLUSH ASDIRECTED PRN Sodium Chloride 0.9% [Saline Flush] Med 03/09/19 16:06 Active 2.5 ml FLUSH ASDIRECTED PRN Blood Culture x2 Reflex Set [OM.PC] Stat Oth 03/09/19 16:06 Ordered Saline Lock Insert [OM.PC] Stat Oth 03/09/19 16:06 Ordered Medication Orders Sodium Chloride (Saline Flush) 10 ml FLUSH ASDIRECTED PRN PRN Reason: Keep Vein Open Sodium Chloride (Saline Flush) 2.5 ml FLUSH ASDIRECTED PRN PRN Reason: Keep Vein Open Labs: Laboratory Tests 03/09/19 03/09/19 03/09/19 Range/Units 16:08 16:51 16:51 WBC 13.86 H (4.0-11.0) K/uL RBC 3.67 L (4.50-5.90) M/uL Hgb 11.6 L (13.0-17.0) g/dL Hct 36.1 L (38.0-50.0) % MCV 98.4 H (80.0-98.0) fL MCH 31.6 (27.0-32.0) pg MCHC 32.1 (31.0-37.0) g/dL RDW Std Deviation 52.0 (28.0-62.0) fl RDW Coeff of Shahid 15 (11.0-15.0) % Plt Count 222 (150-400) K/uL MPV 9.40 (7.40-12.00) fL Neut % (Auto) 82.4 H (48.0-80.0) % Lymph % (Auto) 8.2 L (16.0-40.0) % [place] % (Auto) 9.2 (0.0-15.0) % Eos % (Auto) 0.0 (0.0-7.0) % Baso % (Auto) 0.2 (0.0-1.5) % Neut # (Auto) 11.4 H (1.4-5.7) K/uL Lymph # (Auto) 1.1 (0.6-2.4) K/uL [place] # (Auto) 1.3 H (0.0-0.8) K/uL Eos # (Auto) 0.0 (0.0-0.7) K/uL Baso # (Auto) 0.0 (0.0-0.1) K/uL Nucleated RBC % 0.0 /100WBC Nucleated RBCs # 0 K/uL Lactate 1.2 (0.20-2.00) mmol/L Sodium 140 (136-148) mmol/L Potassium 4.0 (3.5-5.1) mmol/L Chloride 105 (98-107) mmol/L Carbon Dioxide 22.4 (21.0-32.0) mmol/L BUN 38 H (7.0-18.0) mg/dL Creatinine 1.4 H (0.8-1.3) mg/dL Est Cr Clr Drug Dosing 35.96 mL/min Estimated GFR (MDRD) 47.9 ml/min Glucose 121 H (74-106) mg/dL Calcium 8.9 (8.5-10.1) mg/dL Total Bilirubin 0.5 (0.2-1.0) mg/dL AST 22 (15-37) IU/L ALT 25 (14-63) IU/L Alkaline Phosphatase 86 (46-116) U/L Total Protein 7.4 (6.4-8.2) g/dL Albumin 3.4 (3.4-5.0) g/dL Globulin 4.0 (2.6-4.0) g/dL Albumin/Globulin Ratio 0.9 (0.9-1.6) Meds: Medications Generic Name Dose Route Start Last Admin Trade Name Freq PRN Reason Stop Dose Admin Sodium Chloride 10 ml 03/09/19 16:06 Saline Flush FLUSH ASDIRECTED PRN Keep Vein Open Sodium Chloride 2.5 ml 03/09/19 16:06 Saline Flush FLUSH ASDIRECTED PRN Keep Vein Open Discontinued Medications Generic Name Dose Route Start Last Admin Trade Name Freq PRN Reason Stop Dose Admin Vancomycin HCl 1 gm/ Sodium 250 mls @ 166 mls/hr 03/09/19 17:18 03/09/19 18: 48 Chloride IV 03/09/19 18:48 166 mls/hr ONETIME ONE Administration Sodium Chloride 1,000 mls @ 999 mls/hr 03/09/19 17:48 03/09/19 18:48 Normal Saline IV 03/09/19 18:48 125 mls/hr STAT ONE Administration Departure - Departure Time of Disposition: 18:51 Disposition: Refer to Observation Clinical Impression: Mass of neck - Discharge Information Referrals: Morgan Melendez MD [Primary Care Provider] - Forms: ED Department Discharge - My Orders Last 24 Hours: My Active Orders 03/09/19 16:06 Sodium Chloride 0.9% [Saline Flush] 10 ml FLUSH ASDIRECTED PRN Sodium Chloride 0.9% [Saline Flush] 2.5 ml FLUSH ASDIRECTED PRN Blood Culture x2 Reflex Set [OM.PC] Stat Saline Lock Insert [OM.PC] Stat 03/09/19 16:10 Soft Tissue Neck w Cont [CT] Stat 03/09/19 16:35 CULTURE BLOOD [BC] Stat 03/09/19 16:51 CULTURE BLOOD [BC] Stat 03/09/19 18:44 Admission Status [Patient Status] [ADT] Stat - Assessment/Plan Last 24 Hours: My Active Orders 03/09/19 16:06 Sodium Chloride 0.9% [Saline Flush] 10 ml FLUSH ASDIRECTED PRN Sodium Chloride 0.9% [Saline Flush] 2.5 ml FLUSH ASDIRECTED PRN Blood Culture x2 Reflex Set [OM.PC] Stat Saline Lock Insert [OM.PC] Stat 03/09/19 16:10 Soft Tissue Neck w Cont [CT] Stat 03/09/19 16:35 CULTURE BLOOD [BC] Stat 03/09/19 16:51 CULTURE BLOOD [BC] Stat 03/09/19 18:44 Admission Status [Patient Status] [ADT] Stat
[2019-03-09 17:41] LABS: CARBON DIOXIDE,CO2 22.4 mmol/L (21.0-32.0)
[2019-03-09] MEDS ORDERED: Sodium Chloride 0.9% 1,000 ML IV ONE (17:48)
--- NOTE | 2019-03-09 19:01 | PCM.SN ---
- Free Text/Narrative Note: pt seen, chart reviewed; h/p dictated; likely subq abscess; will admit for observation/iv abx; then OR ID in the morning; postop pt would need home health care nursing staff for drsg change every other day, about 3 wks - a month; [id number]
[2019-03-09] MEDS ORDERED: Acetaminophen/oxyCODONE 325-5 MG Tab PO PRN (19:10)
[2019-03-09] MEDS ORDERED: Lactated Ringers 1,000 ML IV SCH (19:15)
[2019-03-09] MEDS ORDERED: Iopamidol 755 MG/ML 500 ML Multipack Bottle IVPUSH STA (20:51)
--- NOTE | 2019-03-09 21:07 | CT ---
INDICATION: Mass, abscess, cellulitis. TECHNIQUE: CT images were obtained through the neck following administration of intravenous contrast. COMPARISON: None. FINDINGS: Large area of fat stranding involving the subcutaneous and deep tissues of the lower right posterior cervical neck associated with overlying skin thickening. Inflammatory changes involve the right trapezius muscle and are inseparable from the right cervical paraspinal musculature. No peripheral enhancing fluid collection to suggest abscess. The nasopharynx, oropharynx, hypopharynx, and larynx are widely patent and without enhancing lesions. No enhancing lesions in the oral cavity or floor of mouth. The parotid and submandibular glands are symmetric in size and without focal lesions or calcifications. No pathologically enlarged lymph nodes. Thyroid gland is normal size and demonstrates homogeneous enhancement. Advanced atherosclerotic calcifications of the carotid bifurcations. Postsurgical changes of prior endoscopic sinus surgery. Extensive mucoperiosteal wall thickening involving the visualized maxillary sinuses, compatible with sequelae of chronic sinusitis. The mastoid air cells are clear. Multilevel cervical spondylosis. The visualized lungs are without concerning opacities. IMPRESSION: 1. Large area of inflammatory stranding involving the subcutaneous and deep tissues of the lower right posterior cervical neck associated with overlying skin thickening. Differential considerations favor sequelae of cellulitis. No enhancing fluid collection of suggest abscess. Clinical correlation and follow-up recommended. 2. No pathologically enlarged lymph nodes. Please note that all CT scans at this facility use dose modulation, iterative reconstruction, and/or weight-based dosing when appropriate to reduce radiation dose to as low as reasonably achievable. Dictated by Matthew Washington MD @ Mar 10 2019 1:14PM Signed by Dr. Matthew Washington @ Mar 10 2019 1:27PM
--- NOTE | 2019-03-10 01:22 | CONS ---
DATE OF CONSULTATION: 03/09/2019 DATE OF : 1930 PRIMARY CARE PHYSICIAN: Morgan Melendez MD REASON FOR CONSULTATION: This is a consult from Dr. Mera, emergency room for neck infection. HISTORY OF PRESENT ILLNESS: The patient is an 88-year-old, obese, gentleman seen in the emergency room for about 1-week history of gradual onset of neck infection. The patient remarked that it was a small bite about a week ago and slowly grew to big one. Denies shortness of breath. Denied chest pain. Denied fever, chills, nausea, vomiting. Denied dysphagia and denied prior episode, and denied drainage. The patient said it does hurt only when he turns his neck completely. Denies any signs or symptoms of airway compromise. PAST MEDICAL HISTORY: Significant for no diabetes, AK, CVA, hypertension. The patient has a history of asthma and sinus problem. SURGICAL HISTORY: None. No abdominal surgery. FAMILY HISTORY: Noncontributory. ALLERGIES: Please refer to nursing for details. MEDICATIONS: Please refer to nursing for details. PHYSICAL EXAMINATION: GENERAL: A very pleasant, morbidly obese gentleman, sitting in wheelchair, in no acute distress, and patient still managed to smile to the doctor. HEENT: Normocephalic and atraumatic. Very poor dentition. The patient has only one single tooth on upper jaw. At neck base on the posterior aspect on the right side, there is a large mass spreading 8 cm, tender to the touch, and with punctate pustulate around the skin. Skin is intact. HEART: Regular rate and rhythm. ABDOMEN: Soft, nondistended. No pulsating tender midline abdominal structure. LUNG: Coarse breath sounds. IMPRESSION: Neck mass, likely severe neck infection. We will proceed with CT imaging to assess the extent of the infection and admit for observation, IV antibiotic, and taken to operating room for incision and drainage and exploration after 12 hours of antibiotic infusion. Plan has been discussed with the patient and the ER provider and all agree. As always, thank you for the kind referral. MARIANNA CASTELLANO /[id number] ARACELI
--- NOTE | 2019-03-10 07:51 | PCM.PREANE ---
Preanesthetic Assessment - Anesthesia/Transfusion/Family Hx Anesthesia History: No Prior Anesthesia Other Type of Anesthesia Reaction Comment: DENIES ANY PROBLEMS WITH ANESTHESIA Family History of Anesthesia Reaction: No Transfusion History: No Prior Transfusion(s) Intubation History: Unknown - Review of Systems General: No Symptoms Pulmonary: Shortness of Breath Cardiovascular: No Symptoms Gastrointestinal: No Symptoms Neurological: No Symptoms Other: Reports: None - Physical Assessment Vital Signs: Last Vital Signs Temp 36.7 C 03/10/19 04:26 Pulse 92 03/10/19 04:26 Resp 20 03/10/19 04:26 BP 158/71 H 03/10/19 04:26 Pulse Ox 99 03/10/19 04:26 Height: 5 ft 8 in Weight: 126.3 kg ASA Class: 3 Mental Status: Alert & Oriented x3 Airway Class: Mallampati = 2 Dentition: Reports: Dentures (upper and lower) Thyro-Mental Finger Breadths: 2 Mouth Opening Finger Breadths: 3 ROM/Head Extension: Limited/Partial Lungs: Wheezing Cardiovascular: Regular Rate, Regular Rhythm - Lab Values: Laboratory Last Values WBC 13.86 K/uL (4.0-11.0) H 03/09/19 16:51 RBC 3.67 M/uL (4.50-5.90) L 03/09/19 16:51 Hgb 11.6 g/dL (13.0-17.0) L 03/09/19 16:51 Hct 36.1 % (38.0-50.0) L 03/09/19 16:51 MCV 98.4 fL (80.0-98.0) H 03/09/19 16:51 MCH 31.6 pg (27.0-32.0) 03/09/19 16:51 MCHC 32.1 g/dL (31.0-37.0) 03/09/19 16:51 RDW Std Deviation 52.0 fl (28.0-62.0) 03/09/19 16:51 RDW Coeff of Shahid 15 % (11.0-15.0) 03/09/19 16:51 Plt Count 222 K/uL (150-400) 03/09/19 16:51 MPV 9.40 fL (7.40-12.00) 03/09/19 16:51 Neut % (Auto) 82.4 % (48.0-80.0) H 03/09/19 16:51 Lymph % (Auto) 8.2 % (16.0-40.0) L 03/09/19 16:51 [place] % (Auto) 9.2 % (0.0-15.0) 03/09/19 16:51 Eos % (Auto) 0.0 % (0.0-7.0) 03/09/19 16:51 Baso % (Auto) 0.2 % (0.0-1.5) 03/09/19 16:51 Neut # (Auto) 11.4 K/uL (1.4-5.7) H 03/09/19 16:51 Lymph # (Auto) 1.1 K/uL (0.6-2.4) 03/09/19 16:51 [place] # (Auto) 1.3 K/uL (0.0-0.8) H 03/09/19 16:51 Eos # (Auto) 0.0 K/uL (0.0-0.7) 03/09/19 16:51 Baso # (Auto) 0.0 K/uL (0.0-0.1) 03/09/19 16:51 Nucleated RBC % 0.0 /100WBC 03/09/19 16:51 Nucleated RBCs # 0 K/uL 03/09/19 16:51 Lactate 1.2 mmol/L (0.20-2.00) 03/09/19 16:08 Sodium 140 mmol/L (136-148) 03/09/19 16:51 Potassium 4.0 mmol/L (3.5-5.1) 03/09/19 16:51 Chloride 105 mmol/L (98-107) 03/09/19 16:51 Carbon Dioxide 22.4 mmol/L (21.0-32.0) 03/09/19 16:51 BUN 38 mg/dL (7.0-18.0) H 03/09/19 16:51 Creatinine 1.4 mg/dL (0.8-1.3) H 03/09/19 16:51 Est Cr Clr Drug Dosing 35.96 mL/min 03/09/19 16:51 Estimated GFR (MDRD) 47.9 ml/min 03/09/19 16:51 Glucose 121 mg/dL (74-106) H 03/09/19 16:51 Calcium 8.9 mg/dL (8.5-10.1) 03/09/19 16:51 Total Bilirubin 0.5 mg/dL (0.2-1.0) 03/09/19 16:51 AST 22 IU/L (15-37) 03/09/19 16:51 ALT 25 IU/L (14-63) 03/09/19 16:51 Alkaline Phosphatase 86 U/L (46-116) 03/09/19 16:51 Total Protein 7.4 g/dL (6.4-8.2) 03/09/19 16:51 Albumin 3.4 g/dL (3.4-5.0) 03/09/19 16:51 Globulin 4.0 g/dL (2.6-4.0) 03/09/19 16:51 Albumin/Globulin Ratio 0.9 (0.9-1.6) 03/09/19 16:51 - Allergies Allergies/Adverse Reactions: Allergies Allergy/AdvReac Type Severity Reaction Status Date / Time No Known Allergies Allergy Verified 03/09/19 21:29 - Blood Blood Available: No - Anesthesia Plan Pre-Op Medication Ordered: None - Acknowledgements Anesthesia Type Planned: General Anesthesia Pt an Appropriate Candidate for the Planned Anesthesia: Yes Alternatives and Risks of Anesthesia Discussed w Pt/Guardian: Yes Pt/Guardian Understands and Agrees with Anesthesia Plan: Yes PreAnesthesia Questionnaire HEENT History: Reports: Cataract Other HEENT History: glasses, upper and lower dentures Cardiovascular History: Reports: Heart Murmur, High Cholesterol, Hypertension Respiratory History: Reports: Asthma (severity depends on pollen count), COPD, Sleep Apnea (uses CPAP), SOB Gastrointestinal History: Reports: Colon Polyp Genitourinary History: Reports: Chronic Renal Insuffiency Musculoskeletal History: Reports: Osteoarthritis Neurological History: Reports: None Psychiatric History: Reports: None Endocrine/Metabolic History: Reports: Diabetes, Type II, Obesity/BMI 30+ (BMI 42.3) Hematologic History: Reports: None Immunologic History: Reports: None Oncologic (Cancer) History: Reports: None Dermatologic History: Reports: None - Infectious Disease History Infectious Disease History: Reports: Chicken Pox, Mumps - Past Surgical History Head Surgeries/Procedures: Reports: None HEENT Surgical History: Reports: Eye Surgery, Naso-Sinus Surgery, Oral Surgery GI Surgical History: Reports: Colonoscopy Oncologic Surgical History: Reports: None Dermatological Surgical History: Reports: None - SUBSTANCE USE Smoking Status *Q: Never Smoker Second Hand Smoke Exposure: No Recreational Drug Use History: No - HOME MEDS Home Medications: Home Meds Albuterol/Ipratropium [Combivent Respimat] 1 puff INH DAILY PRN 01/02/14 [ History] Aspirin 81 mg PO DAILY 01/02/14 [History] B2/Vit A,C & E/Lut/Zeaxanth/Mn [Icaps] 1 tab PO BID 01/02/14 [History] Fluticasone Propionate [Flovent] 2 sprays NASBOTH DAILY 01/02/14 [History] Furosemide [Lasix] 80 mg PO ASDIRECTED 01/02/14 [History] Lisinopril 40 mg PO DAILY 01/02/14 [History] Verapamil HCl [Verapamil ER] 240 mg PO BEDTIME 01/02/14 [History] Allopurinol [Zyloprim] 200 mg PO DAILY 07/26/18 [History] Fluticasone/Salmeterol [Advair HFA 230-21 MCG] 2 puff INH BID 07/26/18 [History] predniSONE 40 mg PO WITHBREAKFAST #6 tablet 07/27/18 [Rx] - CURRENT (IN HOUSE) MEDS Current Meds: Current Medications Lactated Ringer's (Ringers, Lactated) 1,000 mls @ 75 mls/hr IV ASDIRECTED [facility] Last Admin: 03/09/19 23:09 Dose: 75 mls/hr Vancomycin HCl 1.5 gm/ Premix 300 mls @ 200 mls/hr IV Q24H [facility] Oxycodone/Acetaminophen (Percocet 325-5 Mg) 1 tab PO Q8H PRN PRN Reason: Pain Last Admin: 03/09/19 21:21 Dose: 1 tab Sodium Chloride (Saline Flush) 10 ml FLUSH ASDIRECTED PRN PRN Reason: Keep Vein Open Sodium Chloride (Saline Flush) 2.5 ml FLUSH ASDIRECTED PRN PRN Reason: Keep Vein Open Vancomycin HCl (Pharmacy To Dose - Vancomycin) 1 dose .XX ASDIRECTED [facility] Discontinued Medications Vancomycin HCl 1 gm/ Sodium (Chloride) 250 mls @ 166 mls/hr IV ONETIME ONE Stop: 03/09/19 18:48 Last Admin: 03/09/19 18:48 Dose: 166 mls/hr Sodium Chloride (Normal Saline) 1,000 mls @ 999 mls/hr IV STAT ONE Stop: 03/09/19 18:48 Last Admin: 03/09/19 18:48 Dose: 125 mls/hr Vancomycin HCl 500 mg/ Sodium (Chloride) 100 mls @ 100 mls/hr IV Q12H [facility] Iopamidol (Isovue Multipack-370 (76%)) 100 ml IVPUSH ONETIME STA Stop: 03/09/19 20:52 Last Admin: 03/09/19 20:51 Dose: 155 ml
--- NOTE | 2019-03-10 09:26 | PCM.SN ---
- Free Text/Narrative Note: schedule i/d today for neck infection
[2019-03-10] MEDS ORDERED: Albuterol/Ipratropium 3.0-0.5 MG/3 ML Neb Soln NEB ONE (11:03)
[2019-03-10] MEDS ORDERED: fentaNYL 100 MCG/2 ML SDV ONE (11:51)
[2019-03-10] MEDS ORDERED: Midazolam 1 MG/ML 2 ML SDV ONE (11:51)
[2019-03-10] MEDS ORDERED: Ketamine 500 mg/10 ML MDV ONE (11:51)
[2019-03-10] MEDS ORDERED: Bupivacaine 25%/EPINEPHrine/PF 30 ML ONE (12:20)
[2019-03-10] MEDS ORDERED: Propofol 200 MG/20 ML SDV ONE (12:26)
--- NOTE | 2019-03-10 13:38 | PCM.POSTAN ---
POST ANESTHESIA ASSESSMENT - MENTAL STATUS Mental Status: Alert, Oriented - VITAL SIGNS Vital Signs: Last Vital Signs Temp 37.1 C 03/10/19 13:12 Pulse 74 03/10/19 13:27 Resp 18 03/10/19 13:27 BP 135/54 L 03/10/19 13:27 Pulse Ox 95 03/10/19 13:27 - RESPIRATORY Respiratory Status: Respiratory Rate WNL, Airway Patent, O2 Saturation Stable - CARDIOVASCULAR CV Status: Pulse Rate WNL, Blood Pressure Stable - GASTROINTESTINAL GI Status: No Symptoms - PAIN Pain Score: 0 - POST OP HYDRATION Hydration Status: Adequate & Stable - OBSERVATIONS Free Text/Narrative:: no anesthesia problems
--- NOTE | 2019-03-10 13:39 | PCM.OPNOTE ---
- General Post-Op/Procedure Note Date of Surgery/Procedure: 03/10/19 Operative Procedure(s): i/d post r neck infection Findings: large amt of purulent, necrosis, 100 cc, foul smelling; wound packed w 2 in klinx, posterior R neck Pre Op Diagnosis: r neck infection Anesthesia Technique: Local, MAC Primary Surgeon: Faizan Curry Pathology: gs/c+s, anaerobe and aerobe Complications: None Condition: Stable Free Text/Narrative:: Intake & Output 03/09/19 03/10/19 03/10/19 22:59 06:59 14:59 Intake Total 856 Output Total 400 Balance 456
--- NOTE | 2019-03-10 14:13 | PCM.SN ---
- Free Text/Narrative Note: i/d resulted in large amt of purulent materials; wound is now packed; pt await home health care to be able to discharge; next drsg change should be on Wednesday; 3X drsg change per wk X 1 mo
--- NOTE | 2019-03-10 15:05 | PCM48HPAN ---
Post Anesthesia Note - EVALUATION WITHIN 48HRS OF ANESTHETIC Vital Signs in Normal Range: Yes Patient Participated in Evaluation: Yes Respiratory Function Stable: Yes Airway Patent: Yes Cardiovascular Function Stable: Yes Hydration Status Stable: Yes Pain Control Satisfactory: Yes Nausea and Vomiting Control Satisfactory: Yes Mental Status Recovered: Yes Vital Signs: Last Vital Signs Temp 37.1 C 03/10/19 13:12 Pulse 74 03/10/19 13:27 Resp 18 03/10/19 13:27 BP 135/54 L 03/10/19 13:27 Pulse Ox 95 03/10/19 13:27 - COMMENTS/OBSERVATIONS Free Text/Narrative:: no anesthesia problems
[2019-03-10 18:28] VITALS: BP 148/65; PULSE 80
--- NOTE | 2019-04-04 13:24 | PCM.SN ---
- Free Text/Narrative Note: Phone was not working on day of surgery; op note dictated today, [id number]
--- NOTE | 2019-04-04 14:30 | OR ---
SURGEON: Faizan Curry MD DATE OF PROCEDURE: 03/09/2019 PREOPERATIVE DIAGNOSIS: Neck base subcutaneous abscess. POSTOPERATIVE DIAGNOSIS: Neck base subcutaneous abscess. PROCEDURE PERFORMED: Incision and drainage and exploration of the right neck base infection. PRIMARY SURGEON: Faizan Curry MD. COMPLICATIONS: None. FINDINGS: I and D resulted in large amount purulent necrosis and wound packed with 2-inch Siva on posterior right neck. The I and D dimension is 4 x 4 cm. DESCRIPTION OF PROCEDURE: The patient was taken to the operating room and placed in supine position, and upon induction of mild general sedation, the patient was repositioned into a left decub position, left side down, right side up. Then, right neck base area was prepped and draped in a sterile fashion and local anesthetic was infiltrated around the mass. The mass was a little bit on the posterior aspect of the right neck base, right at the base and posterior, and that area was infiltrated with 1% lidocaine. Using an 11 blade, a cross incision was made around the most elevated area, which incision was 4 cm, like a cruciate incision, 4 x 4 cm. No skin has been cut yet that resulted in a running gushing of foul-smelling necrosis, and since the covering skin already has purulent drainage, it suggests that the skin is probably nonsurvival, that was excised. The excised skin was 2 x 2 cm. Then, using surgeon's finger, the innoculation was dislodged and followed with extensive irrigation until irrigation was clear. Good hemostasis used by use of electrocautery and the wound was then packed with 2-inch Siva gauze and followed with appropriate dressing. The patient was awakened and transferred to recovery room in hemodynamically stable condition. Upon closing, the instrument and sponge count was correct and the area was bone dry. As always, thank you for your kind referral. MARIANNA / NONA /[id number] ARACELI
--- NOTE | 2019-04-20 22:17 | OR ---
SURGEON: Faizan Curry MD DATE OF PROCEDURE: 03/10/2019 ADDENDUM: The procedure date was 03/10/2019. MARIANNA / NONA /[id number]
== END 2019-03-10 16:35 | disposition home or self-care (01) ==
LOC: MW.ED 15:50 → EEVIPCON 18:44 → MW.MS 18:44
PROVIDERS: ADMIT Surgery; ATTEND Surgery
DX: L02.11 Cutaneous abscess of neck (principal); I10 Essential (primary) hypertension; E78.00 Pure hypercholesterolemia, unspecified; E11.9 Type 2 diabetes mellitus without complications; J44.9 Chronic obstructive pulmonary disease, unspecified; M19.90 Unspecified osteoarthritis, unspecified site; E66.01 Morbid (severe) obesity due to excess calories; Z79.82 Long term (current) use of aspirin; Z79.899 Other long term (current) drug therapy; Z68.41 Body mass index [BMI] 40.0-44.9, adult; R22.1 Localized swelling, mass and lump, neck
CPT/HCPCS: 10060; 11000; 36415; 70491; 80053; 83605; 85025; 87040; 87070; 87075; 87077; 87186; 87205; 96361; 96365; 96376; 99284; A9270; G0378; J2250; J3010; J3370; J7040; J7050; J7120; Q9967; 00300; J2704; J7030; J7620-GY